=== PATIENT | female | born 1975 | race Hispanic/Latino ===

== ENCOUNTER 2018-07-07 10:56 | Emergency (ER) | payer BC ==
--- NOTE | 2018-07-07 11:34 | EDPHYS ---
Physician Documentation [facility] Name: Ruby Salvador Age: 43 yrs Sex: Female : 1975 Arrival Date: 07/07/2018 Time: 10:59 Bed 16 Private MD: Aman Munguia E ED Physician Jonny Kang HPI: 07/07 11:25 This 43 yrs old Female presents to ER via Ambulatory with complaints of blaien Numbness Of Hand, TINGLING, Shoulder Pain. 11:25 The patient or guardian reports decreased range of motion, pain. The complaints affect blaine the left hand diffusely. Context: The problem was sustained at an unknown location. Onset: The symptoms/episode began/occurred 2 week(s) ago. Modifying factors: The symptoms are alleviated by holding still, splinting, the symptoms are aggravated by movement, dependent position. Severity of symptoms: At their worst the symptoms were mild, in the emergency department the symptoms are actually worse. The patient has experienced similar episodes in the past, several times. Historical: - Allergies: 11:06 No Known Allergies; sv - Home Meds: 11:06 None [Active]; sv - PMHx: 11:06 None; sv - PSHx: 11:06 right knee; sv - Immunization history:: Flu vaccine is not up to date. - Social history:: Smoking status: Patient/guardian denies using tobacco. - Ebola Screening: : No symptoms or risks identified at this time. - Family history:: not pertinent. ROS: 11:25 Constitutional: Negative for fever, chills, and weight loss, Eyes: Negative for injury, blaine pain, redness, and discharge, ENT: Negative for injury, pain, and discharge, Neck: Negative for injury, pain, and swelling, Cardiovascular: Negative for chest pain, palpitations, and edema, Respiratory: Negative for shortness of breath, cough, wheezing, and pleuritic chest pain, Abdomen/GI: Negative for abdominal pain, nausea, vomiting, diarrhea, and constipation, Back: Negative for injury and pain, : Negative for injury, bleeding, discharge, and swelling, Skin: Negative for injury, rash, and discoloration, Neuro: Negative for headache, weakness, numbness, tingling, and seizure, Psych: Negative for depression, anxiety, suicide ideation, homicidal ideation, and hallucinations, Allergy/Immunology: Negative for hives, rash, and allergies, Endocrine: Negative for neck swelling, polydipsia, polyuria, polyphagia, and marked weight changes, Hematologic/Lymphatic: Negative for swollen nodes, abnormal bleeding, and unusual bruising. 11:25 MS/extremity: Positive for pain, tingling, of the left hand. Exam: 11:25 Constitutional: This is a well developed, well nourished patient who is awake, alert, blaine and in no acute distress. Head/Face: Normocephalic, atraumatic. Eyes: Pupils equal round and reactive to light, extra-ocular motions intact. Lids and lashes normal. Conjunctiva and sclera are non-icteric and not injected. Cornea within normal limits. Periorbital areas with no swelling, redness, or edema. ENT: Nares patent. No nasal discharge, no septal abnormalities noted. Tympanic membranes are normal and external auditory canals are clear. Oropharynx with no redness, swelling, or masses, exudates, or evidence of obstruction, uvula midline. Mucous membranes moist. Neck: Trachea midline, no thyromegaly or masses palpated, and no cervical lymphadenopathy. Supple, full range of motion without nuchal rigidity, or vertebral point tenderness. No Meningismus. Chest/axilla: Normal chest wall appearance and motion. Nontender with no deformity. No lesions are appreciated. Cardiovascular: Regular rate and rhythm with a normal S1 and S2. No gallops, murmurs, or rubs. Normal PMI, no JVD. No pulse deficits. Respiratory: Lungs have equal breath sounds bilaterally, clear to auscultation and percussion. No rales, rhonchi or wheezes noted. No increased work of breathing, no retractions or nasal flaring. Abdomen/GI: Soft, non-tender, with normal bowel sounds. No distension or tympany. No guarding or rebound. No evidence of tenderness throughout. Back: No spinal tenderness. No costovertebral tenderness. Full range of motion. Skin: Warm, dry with normal turgor. Normal color with no rashes, no lesions, and no evidence of cellulitis. Neuro: Awake and alert, GCS 15, oriented to person, place, time, and situation. Cranial nerves II-XII grossly intact. Motor strength 5/5 in all extremities. Sensory grossly intact. Cerebellar exam normal. Normal gait. Psych: Awake, alert, with orientation to person, place and time. Behavior, mood, and affect are within normal limits. 11:25 Musculoskeletal/extremity: ROM: intact in all extremities, Circulation is intact in all extremities. Sensation intact. Compartment Syndrome exam of affected extremity: is normal. DVT Exam: No signs of deep vein thrombosis. no pain, no swelling, no tenderness, negative Homans' sign noted on exam, no appreciated bluish discoloration, no erythema, no increased warmth. Vital Signs: 11:06 BP 115 / 66; Pulse 63; Resp 18; Temp 97.2; Pulse Ox 100% ; Height 5 ft. 1 in. (154.94 sv cm); MDM: 11:12 Patient medically screened. [facility] 11:30 Data reviewed: vital signs, nurses notes, lab test result(s), EKG, radiologic studies. [facility] 07/07 11:25 Order name: Splint: cock up left hand; Complete Time: 11:55 [facility] Administered Medications: 11:50 Drug: Motrin 400 mg Route: PO; em 11:52 Follow up: Response: Medication administered at discharge. em Disposition: 07/07/18 11:34 Discharged to Home. Impression: Carpal tunnel syndrome, left upper limb - moderate, Carpal tunnel syndrome, right upper limb - mild. - Condition is Stable. - Discharge Instructions: Carpal Tunnel Syndrome, Wrist Splint, Wrist Splint, Bzel-[id number]-Npec, Carpal Tunnel Syndrome, [id number], Electromyoneurogram. - Prescriptions for Medrol (Conner) 4 mg Oral Tablets, Dose Pack - take 1 tablet by ORAL route as directed - follow package instructions; 1 packet. Motrin IB 200 mg Oral Tablet - take 2 tablet by ORAL route every 6 hours As needed as needed with food; 30 tablet. - Medication Reconciliation Form, Thank You Letter, Antibiotic Education, Prescription Opioid Use, Work release form form. - Follow up: Aman Munguia MD; When: 2 - 3 days; Reason: Recheck today's complaints, Continuance of care, Re-evaluation by your physician. - Problem is new. - Symptoms have improved. Signatures: Francisca Holly RN RN sv Anderson, Corey, MD MD cha Munoz, Edgar, GLASS UNLOADING EQUIPMENT TENDER GLASS UNLOADING EQUIPMENT TENDER em Anisa Delacruz RN RN Corrections: (The following items were deleted from the chart) 11:53 11:34 07/07/2018 11:34 Discharged to Home. Impression: Carpal tunnel syndrome, left hb upper limb - moderate; Carpal tunnel syndrome, right upper limb - mild. Condition is Stable. Forms are Medication Reconciliation Form, Thank You Letter, Antibiotic Education, Prescription Opioid Use. Follow up: Aman Munguia; When: 2 - 3 days; Reason: Recheck today's complaints, Continuance of care, Re-evaluation by your physician. Problem is new. Symptoms have improved. blaine
--- NOTE | 2018-07-07 11:34 | ER ---
Nurse's Notes [facility] Name: Ruby Salvador Age: 43 yrs Sex: Female : 1975 Arrival Date: 07/07/2018 Time: 10:59 Bed 16 Private MD: Aman Munguia E Diagnosis: Carpal tunnel syndrome, left upper limb-moderate;Carpal tunnel syndrome, right upper limb-mild Presentation: 07/07 11:04 Presenting complaint: Patient states: numbness and tingling to the left arm and hand x sv 3 days and today started having numbness to the right hand today. Denies recent fall or injury. Transition of care: patient was not received from another setting of care. Onset of symptoms was July 04, 2018. Care prior to arrival: None. 11:04 Method Of Arrival: Ambulatory sv 11:04 Acuity: TIFFANI 3 sv 11:50 Risk Assessment: Do you want to hurt yourself or someone else? Patient reports no em desire to harm self or others. Initial Sepsis Screen: Does the patient meet any 2 criteria? No. Patient's initial sepsis screen is negative. Does the patient have a suspected source of infection? No. Patient's initial sepsis screen is negative. Triage Assessment: 11:04 General: Appears in no apparent distress. uncomfortable, Behavior is calm, cooperative, sv appropriate for age. Pain: Complains of pain in left arm. Neuro: Level of Consciousness is awake, alert, obeys commands, Oriented to person, place, time, situation, Moves all extremities. Full function Gait is unsteady, Reports numbness in right hand and left arm. Respiratory: Respiratory effort is even, unlabored, Respiratory pattern is regular, symmetrical. Historical: - Allergies: 11:06 No Known Allergies; sv - Home Meds: 11:06 None [Active]; sv - PMHx: 11:06 None; sv - PSHx: 11:06 right knee; sv - Immunization history:: Flu vaccine is not up to date. - Social history:: Smoking status: Patient/guardian denies using tobacco. - Ebola Screening: : No symptoms or risks identified at this time. - Family history:: not pertinent. Screenin:50 Abuse screen: Denies threats or abuse. Nutritional screening: No deficits noted. em Tuberculosis screening: No symptoms or risk factors identified. Fall Risk None identified. Assessment: 11:50 General: Appears in no apparent distress. comfortable, Behavior is calm, cooperative. em Neuro: Level of Consciousness is awake, alert, obeys commands. Respiratory: Airway is patent Respiratory effort is even, unlabored, Respiratory pattern is regular, symmetrical. Derm: Skin is intact, is healthy with good turgor, Skin is pink, warm \T\ dry. Musculoskeletal: Range of motion: limited in left wrist. Vital Signs: 11:06 BP 115 / 66; Pulse 63; Resp 18; Temp 97.2; Pulse Ox 100% ; Height 5 ft. 1 in. (154.94 sv cm); ED Course: 10:59 Patient arrived in ED. sb2 11:00 Aman Munguia MD is Private Physician. sb2 11:05 Triage completed. sv 11:06 Arm band placed on. sv 11:12 Jonny Kang MD is Attending Physician. [facility] 11:32 Aman Munguia MD is Referral Physician. [facility] 11:41 Juan Giron LVN is Primary Nurse. em 11:50 Patient has correct armband on for positive identification. Placed in gown. Call light em in reach. 11:52 No provider procedures requiring assistance completed. Patient did not have IV access em during this emergency room visit. Administered Medications: 11:50 Drug: Motrin 400 mg Route: PO; em 11:52 Follow up: Response: Medication administered at discharge. em Outcome: 11:34 Discharge ordered by . [facility] 11:52 Discharged to home ambulatory. em 11:52 Condition: good 11:52 Discharge instructions given to patient, Instructed on discharge instructions, follow up and referral plans. medication usage, Demonstrated understanding of instructions, follow-up care, medications, Prescriptions given X 2. 11:53 Patient left the ED. Signatures: Francisca Holly, RN RN Jonny Kang MD MD cha Munoz, Edgar, LVN ART INSTRUCTOR em Anisa Delacruz, BELKIS RN Neisha Youssef sb2 Corrections: (The following items were deleted from the chart) 19:16 12:52 No provider procedures requiring assistance completed. em em 19:16 12:52 Patient did not have IV access during this emergency room visit. em em
[2018-07-07 11:57] VITALS: BP 115/66; TEMP 97.2; O2SAT 100
[2018-07-07] MEDS ORDERED: IBUPROFEN 400 MG TAB ONE (11:58)
== END 2018-07-07 11:53 | disposition home or self-care (01) ==
LOC: ER 10:56
DX: G56.03 Carpal tunnel syndrome, bilateral upper limbs (principal)
CPT/HCPCS: 99283

== ENCOUNTER 2019-12-04 11:11 | Emergency (ER) | payer BC, SELFPAY ==
[2019-12-04] MEDS ORDERED: MORPHINE 4 MG/ML SYR ONE (13:14)
[2019-12-04] MEDS ORDERED: ONDANSETRON 4 MG/2 ML VIAL ONE (13:15)
[2019-12-04 13:42] LABS: Absolute Lymphocytes (CBC) 1.9 K/uL (0.7-4.9); Basophils % 0.5 % (0-1.3); Hematocrit 37.6 % (36.0-45.0); Lymphocytes % 25.8 % (15.3-44.8); MPV 9.1 fL (7.6-11.3); RBC Red Blood Cell Count 4.36 M/uL (3.86-4.86)
[2019-12-04 13:57] LABS: ALT/SGPT 25 U/L (12-78); AST/SGOT 11 U/L (15-37); Albumin 3.5 g/dL (3.4-5.0); Alkaline Phosphatase 76 U/L (45-117); BUN Blood Urea Nitrogen 8 mg/dL (7-18); Bicarbonate 25 mmol/L (21-32); Bilirubin Direct 0.1 mg/dL (0-0.2); Bilirubin Total 0.3 mg/dL (0.2-1.0); Glucose Level 95 mg/dL (74-106); Lipase 79 U/L (73-393); Potassium 3.8 mmol/L (3.5-5.1); Protein, Total 7.6 g/dL (6.4-8.2); Sodium Level 139 mmol/L (136-145)
--- NOTE | 2019-12-04 13:59 | RAD REPORT ---
EXAM DESCRIPTION: CT - Abdomen Pelvis W Contrast - 12/04/2019 1:31 pm CLINICAL HISTORY: FLANK PAIN COMPARISON: CTSTONE PROTOCOL dated 08/04/2012 TECHNIQUE: Biphasic, helical CT imaging of the abdomen and pelvis was performed following 100 ml non -ionic IV contrast. No oral contrast given. All CT scans are performed using dose optimization technique as appropriate and may include automated exposure control or mA/KV adjustment according to patient size. FINDINGS: No suspicious findings in the lung bases. Liver shows a very pronounced fatty infiltration pattern. No focal liver lesions identified. Fatty in filtration was evident on the comparison. No spleen or pancreatic abnormality. No biliary tree abnorm ality. A 2.4 centimeter gallstone is present within the lumen of a normal-sized gallbladder. No wall thickening or pericholecystic fluid evident. Symmetric renal function is seen with no hydronephrosis or suspicious renal mass. No pyelonephritis o r acute parenchymal process. No bladder abnormalities. No adrenal abnormalities. Uterus and ovaries show no suspicious findings. No dilated bowel loops or bowel wall thickening. The appendix is normal. No free air, free fluid or i nflammatory stranding. No mass or bulky lymphadenopathy. A very small fat only umbilical hernia pres ent. No suspicious bony findings. IMPRESSION: A 2.4 centimeter gallstone is present without active gallbladder disease identifiable. Diffuse fatty infiltration of the liver similar to comparison. No acute GI, or CAREER GUIDANCE COUNSELOR process otherwise noted.
--- NOTE | 2019-12-04 15:25 | ER ---
Nurse's Notes [facility] Name: Ruby Salvador Age: 44 yrs Sex: Female : 1975 Arrival Date: 12/04/2019 Time: :12 Bed 16 Private MD: Diagnosis: Flank Pain;Cholelithiasis Presentation: 12/03 11:29 Chief complaint: Patient states: Flank pain on both sides since 3 weeks, worse in the ca1 past few days. Denies urinary symptoms. Denies kidneys. History of frequent UTIs without burning with urination. Denies fever and nausea. Coronavirus screen: Proceed with normal triage. Patient denies a cough. Patient denies shortness of breath or difficulty breathing. Patient denies measured and/or subjective temperature greater than 100.4F prior to today's visit. Patient denies travel on a cruise ship or to a country the [facility] currently lists as an affected area. Patient denies contact with known and/or suspected case of COVID-19. Ebola Screen: Patient negative for fever greater than or equal to 101.5 degrees Fahrenheit, and additional compatible Ebola Virus Disease symptoms Patient denies exposure to infectious person. Patient denies travel to an Ebola-affected area in the 21 days before illness onset. No symptoms or risks identified at this time. Initial Sepsis Screen: Does the patient meet any 2 criteria? No. Patient's initial sepsis screen is negative. Does the patient have a suspected source of infection? No. Patient's initial sepsis screen is negative. Risk Assessment: Do you want to hurt yourself or someone else? Patient reports no desire to harm self or others. Onset of symptoms was December 04, 2019. 11:29 Method Of Arrival: Wheelchair ca1 11:29 Acuity: TIFFANI 3 ca1 Triage Assessment: 12:19 General: Appears in no apparent distress. comfortable, Behavior is cooperative, bp appropriate for age, anxious. Pain: Complains of pain in back. EENT: No deficits noted. Neuro: No deficits noted. Cardiovascular: No deficits noted. Respiratory: No deficits noted. GI: No signs and/or symptoms were reported involving the gastrointestinal system. : No signs and/or symptoms were reported regarding the genitourinary system. Derm: No deficits noted. Musculoskeletal: Circulation, motion, and sensation intact. Range of motion: intact in all extremities. 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 - Social history:: Smoking status: Patient denies any tobacco usage or history of. Screenin:20 Abuse screen: Denies threats or abuse. Denies injuries from another. Nutritional bp screening: No deficits noted. Tuberculosis screening: No symptoms or risk factors identified. Fall Risk None identified. Assessment: 12:20 General: SEE TRIAGE NOTE. Neuro: Level of Consciousness is awake, alert, obeys bp commands, Oriented to Appropriate for age. 14:30 Reassessment: PT AMBULATORY TO RESTROOM. VS STABLE. bp 15:33 Reassessment: PT D/C HOME AMBULATORY, DX WITH CHOLELITHIASIS. bp Vital Signs: 11:29 BP 121 / 76; Pulse 64; Resp 16 S; Temp 98.8(O); Pulse Ox 100% on R/A; Weight 92.08 kg ca1 (R); Height 5 ft. 1 in. (154.94 cm) (R); Pain 8/10; 12:30 BP 117 / 62; Pulse 71; Resp 16; Pulse Ox 99% ; bp 14:30 BP 102 / 58; Pulse 61; Resp 16; Pulse Ox 100% ; bp 15:33 BP 106 / 66; Pulse 59; Resp 17; Temp 98.5; Pulse Ox 100% ; bp 11:29 Body Mass Index 38.36 (92.08 kg, 154.94 cm) ca1 ED Course: 11:12 Patient arrived in ED. ag5 11:32 Triage completed. ca1 11:36 Arm band placed on right wrist. EKG completed in triage. Results shown to MD. ca1 12:19 William Merida, RN is Primary Nurse. bp 12:20 Patient has correct armband on for positive identification. Bed in low position. Call bp light in reach. Side rails up X2. 12:22 Jonny Kang MD is Attending Physician. [facility] 12:22 Je Torres PA is PHCP. m 13:00 Inserted saline lock: 20 gauge in left forearm, using aseptic technique. Blood bp collected. 13:31 CT Abd/Pelvis - IV Contrast Only In Process Unspecified. EDMS 15:33 No provider procedures requiring assistance completed. IV discontinued, intact, bp bleeding controlled, No redness/swelling at site. Pressure dressing applied. Administered Medications: 13:05 Drug: morphine 4 mg Route: IVP; Site: left forearm; bp 15:35 Follow up: Response: Pain is decreased bp 13:05 Drug: Zofran (Ondansetron) 4 mg Route: IVP; Site: left forearm; bp 15:35 Follow up: Response: No adverse reaction bp Outcome: 15:25 Discharge ordered by . carolynn 15:34 Discharged to home ambulatory. bp 15:34 Condition: stable 15:34 Discharge instructions given to patient, Instructed on discharge instructions, follow up and referral plans. medication usage, Demonstrated understanding of instructions, follow-up care, medications, Prescriptions given X 1. 15:35 Patient left the ED. bp Signatures: Dispatcher [employer] EDMS Jonny Kang MD MD cha Mickail, Joel, PA PA William Fraga, BELKIS RN bp Angelique Chang RN RN [facility] Esteban [place] ag5 Corrections: (The following items were deleted from the chart) 14:44 14:37 Reassessment: bp bp
--- NOTE | 2019-12-04 15:26 | EDPHYS ---
Physician Documentation [facility] Name: Ruby Salvador Age: 44 yrs Sex: Female : 1975 Arrival Date: 12/04/2019 Time: 11:12 Bed 16 Private MD: ED Physician Jonny Kang HPI: 12/03 12:22 This 44 yrs old Female presents to ER via Wheelchair with complaints of Back jmm Pain. 12:22 The patient presents with pain that is chronic, with no known mechanism of injury. The jmm symptoms are located in the left flank, right flank, left mid back and right mid back. Onset: The symptoms/episode began/occurred gradually, 3 week(s) ago. The pain does not radiate. Associated signs and symptoms: Pertinent negatives: constipation, fever, vomiting, weakness. This is a 44 year old female with no known chronic medical conditions that presents to the ED with complaints of bilateral flank pain, ongoing for the past 3 weeks. Patient stats having intermittent episodes of similar pain. . 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 - Social history:: Smoking status: Patient denies any tobacco usage or history of. ROS: 12:22 Constitutional: Negative for fever, chills, and weight loss, Cardiovascular: Negative jmm for chest pain, palpitations, and edema, Respiratory: Negative for shortness of breath, cough, wheezing, and pleuritic chest pain. 12:22 Back: Positive for pain with movement. 12:22 All other systems are negative. Exam: 12:22 Constitutional: This is a well developed, well nourished patient who is awake, alert, jmm and in no acute distress. Head/Face: atraumatic. Eyes: EOMI, no conjunctival erythema appreciated ENT: Moist Mucus Membranes Neck: Trachea midline, Supple Chest/axilla: Normal chest wall appearance and motion. Cardiovascular: Regular rate and rhythm. No edema appreciated Respiratory: Normal respirations, no respiratory distress appreciated 12:22 Skin: General appearance color normal MS/ Extremity: Moves all extremities, no obvious deformities appreciated, no edema noted to the lower extremities Neuro: Awake and alert, normal gait Psych: Behavior is normal, Mood is normal, Patient is cooperative and pleasant 12:22 Abdomen/GI: Inspection: abdomen appears normal, Bowel sounds: normal, Palpation: abdomen is soft and non-tender, in all quadrants. 12:22 Back: CVA tenderness, is noted bilaterally. Vital Signs: 11:29 BP 121 / 76; Pulse 64; Resp 16 S; Temp 98.8(O); Pulse Ox 100% on R/A; Weight 92.08 kg ca1 (R); Height 5 ft. 1 in. (154.94 cm) (R); Pain 8/10; 12:30 BP 117 / 62; Pulse 71; Resp 16; Pulse Ox 99% ; bp 14:30 BP 102 / 58; Pulse 61; Resp 16; Pulse Ox 100% ; bp 15:33 BP 106 / 66; Pulse 59; Resp 17; Temp 98.5; Pulse Ox 100% ; bp 11:29 Body Mass Index 38.36 (92.08 kg, 154.94 cm) ca1 MDM: 12:22 Patient medically screened. [facility] 15:22 Data reviewed: vital signs, nurses notes, lab test result(s), radiologic studies, CT [facility] scan. 15:22 Counseling: I had a detailed discussion with the patient and/or guardian regarding: the [facility] historical points, exam findings, and any diagnostic results supporting the discharge/admit diagnosis, lab results, radiology results, the need for outpatient follow up, to return to the emergency department if symptoms worsen or persist or if there are any questions or concerns that arise at home. ED course: Patient is alert and non toxic in appearance in the ED. Pain is relieved. Patient is advised to follow up with GI for further evaluation of cholelithiasis. UA negative. CT otherwise negative. Patient is otherwise given strict return precautions. Patient understood and agrees with the plan of care. . 12/03 12:57 Order name: Basic Metabolic Panel; Complete Time: 14:05 [facility] 12/03 12:57 Order name: CBC with Diff; Complete Time: 13:53 [facility] 12/03 12:57 Order name: Hepatic Function; Complete Time: 14:05 [facility] 12/03 12:57 Order name: Lipase; Complete Time: 14:05 [facility] 12/03 13:38 Order name: CREATININE WHOLE BLOOD; Complete Time: 13:53 [facility] 12/03 11:37 Order name: EKG; Complete Time: 11:38 ca1 12/03 11:37 Order name: EKG - Nurse/Tech; Complete Time: 11:37 ca1 12/03 12:57 Order name: IV Saline Lock; Complete Time: 13:35 [facility] 12/03 12:58 Order name: CT Abd/Pelvis - IV Contrast Only; Complete Time: 14:05 [facility] 12/03 15:14 Order name: Urine Dipstick--Ancillary (enter results) 12/03 15:14 Order name: Urine --Ancillary (enter results) 12/03 12:57 Order name: Labs collected and sent; Complete Time: 13:34 [facility] 12/03 12:57 Order name: Urine Dipstick-Ancillary (obtain specimen); Complete Time: 13:35 [facility] Administered Medications: 13:05 Drug: morphine 4 mg Route: IVP; Site: left forearm; bp 15:35 Follow up: Response: Pain is decreased bp 13:05 Drug: Zofran (Ondansetron) 4 mg Route: IVP; Site: left forearm; bp 15:35 Follow up: Response: No adverse reaction bp Disposition: 12/04 09:38 Co-signature as Attending Physician, Jonny Kang MD I agree with the assessment and [facility] plan of care. Disposition: 12/04/19 15:25 Discharged to Home. Impression: Flank Pain, Cholelithiasis. - Condition is Stable. - Discharge Instructions: Flank Pain, Adult, Cholelithiasis. - Prescriptions for orphenadrine citrate 100 mg Oral Tablet Sustained Release - take 1 tablet by ORAL route 2 times per day As needed; 20 tablet. - Medication Reconciliation Form, Thank You Letter, Antibiotic Education, Prescription Opioid Use form. - Follow up: Private Physician; When: 2 - 3 days; Reason: Recheck today's complaints, Continuance of care, Re-evaluation by your physician. Signatures: Dispatcher [employer] Jonny Schuster MD MD cha Mickail, Joel, PA PA jmm Peltier, Brian, RN RN bp Angelique Chang RN RN ca1 Corrections: (The following items were deleted from the chart) 12/03 12:58 12:58 Creatinine for Radiology+C.LAB.BRZ ordered. EDNV EDMS 15:35 15:25 12/04/2019 15:25 Discharged to Home. Impression: Flank Pain; Cholelithiasis. bp Condition is Stable. Forms are Medication Reconciliation Form, Thank You Letter, Antibiotic Education, Prescription Opioid Use. Follow up: Private Physician; When: 2 - 3 days; Reason: Recheck today's complaints, Continuance of care, Re-evaluation by your physician. carolynn
[2019-12-04 16:32] VITALS: O2SAT 100
[2019-12-04 16:33] VITALS: BP 106/66; TEMP 98.5
[2019-12-04 17:23] LABS: Urine Blood NEGATIVE (NEG); Urine Glucose NEGATIVE (NEG); Urine Protein NEGATIVE (NEG)
--- NOTE | 2019-12-05 07:24 | EKG ---
Test Date: 2019-12-04 Test Time: 11:38:31 Diamond Grinder: STACIE MEASUREMENT RESULTS: Intervals: Rate: 61 IA: 128 QRSD: 80 QT: 412 QTc: 414 [place]: P: 44 IA: 128 QRS: 86 T: 55 INTERPRETIVE STATEMENTS: Normal sinus rhythm Normal ECG Compared to ECG 06/16/2010 13:38:10 No significant changes Electronically Signed On 12-05-19 07:23:03 CDT by Brian Gallardo
== END 2019-12-04 15:35 | disposition home or self-care (01) ==
LOC: ER 11:11
DX: K80.20 Calculus of gallbladder without cholecystitis without obstruction (principal)
CPT/HCPCS: 36415; 74177; 80048; 80076; 81003; 81025; 82565; 83690; 85025; 93005; 96374; 96375; 99284; J2405; Q9967

== ENCOUNTER 2022-05-14 06:43 | Observation (INO) | payer SELFPAY ==
[2022-05-14 07:34] LABS: Hematocrit 37.5 % (36.0-45.0); Lymphocytes % 29.1 % (15.3-44.8); MCV 83.9 fL (80-100); MPV 8.5 fL (7.6-11.3); RBC Red Blood Cell Count 4.47 M/uL (3.86-4.86)
[2022-05-14] MEDS ORDERED: ONDANSETRON 4 MG/2 ML VIAL ONE (07:52)
[2022-05-14] MEDS ORDERED: MORPHINE 4 MG/ML SYR ONE (07:52)
[2022-05-14] MEDS ORDERED: PIPERACIL/TAZO 3.375 GM VIAL IV ONE (07:53)
[2022-05-14] MEDS ORDERED: NA CHLORIDE 0.9% 1,000 ML ONE (07:53)
[2022-05-14] MEDS ORDERED: NA CHLORIDE 0.9% 100 ML IV ONE (07:53)
[2022-05-14] MEDS ORDERED: FAMOTIDINE 20 MG/2 ML VIAL IV ONE (07:53)
[2022-05-14 07:54] LABS: Potassium 3.6 mmol/L (3.5-5.1); Troponin High Sensitivity 4.8 pg/mL (<58.9)
--- NOTE | 2022-05-14 08:31 | RAD REPORT ---
EXAM DESCRIPTION: US - Abdomen Exam Limited - 05/14/2022 8:04 am CLINICAL HISTORY: ABD PAIN COMPARISON: No comparisons FINDINGS: The gallbladder demonstrates shadowing gallstone. No pericholecystic fluid or gallbladder wall thickening. The common bile duct is upper limit of normal measuring 4-5 mm. The liver demonstrates no findings of intrahepatic biliary dilatation. IMPRESSION: Cholelithiasis.
[2022-05-14 08:47] LABS: SARS-CoV-2 Antigen Rapid Res Negative (Negative)
--- NOTE | 2022-05-14 08:50 | RAD REPORT ---
EXAM DESCRIPTION: RAD - Chest Single View - 05/14/2022 8:29 am CLINICAL HISTORY: CHEST PAIN Chest pain. COMPARISON: CHEST SINGLE VIEW dated 06/16/2010 FINDINGS: Portable technique limits examination quality. The lungs are grossly clear. The heart is normal in size. No displaced fractures. IMPRESSION: No acute intrathoracic process suspected.
--- NOTE | 2022-05-14 09:28 | ER ---
Nurse's Notes [facility] Name: Ruby Salvador Age: 46 yrs Sex: Female : 1975 Arrival Date: 05/14/2022 Time: 06:46 Bed 5 Private MD: Diagnosis: Calculus of gallbladder and bile duct with acute and chronic cholecystitis without obstruction;Abdominal pain, Generalized Presentation: 05/14 06:53 Chief complaint: Patient states: I woke up this morning about 3 am with chest pain it vc1 started in my upper stomach but now is over my heart and left shoulder. 06:53 Coronavirus screen: Vaccine status: Patient reports being unvaccinated. At this time, vc1 the client does not indicate any symptoms associated with coronavirus-19. Ebola Screen: No symptoms or risks identified at this time. Risk Assessment: Do you want to hurt yourself or someone else? Patient reports no desire to harm self or others. Onset of symptoms was May 14, 2022 at 03:00. 06:53 Method Of Arrival: Ambulatory vc1 06:53 Acuity: TIFFANI 3 vc1 07:10 Initial Sepsis Screen: Does the patient meet any 2 criteria? No. Patient's initial ha1 sepsis screen is negative. Does the patient have a suspected source of infection? No. Patient's initial sepsis screen is negative. Triage Assessment: 06:55 General: Appears in no apparent distress. uncomfortable, Behavior is anxious. Pain: vc1 Complains of pain in xiphoid area Pain radiates to anterior aspect of left upper chest and left arm Pain currently is 8 out of 10 on a pain scale. Neuro: Level of Consciousness is awake, alert, obeys commands, Oriented to person, place, time, situation, Appropriate for age. Cardiovascular: Patient's skin is warm and dry. Chest pain is described as severe, quality is clutching, sharp, is located in left anterior chest wall radiates to left arm(s). Respiratory: Airway is patent Respiratory effort is even, unlabored, Respiratory pattern is regular, symmetrical. GI: No deficits noted. : No deficits noted. Derm: No deficits noted. Musculoskeletal: No deficits noted. 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 - Social history:: Smoking status: Patient denies any tobacco usage or history of. - Family history:: not pertinent. Screenin:54 Abuse screen: Denies threats or abuse. Nutritional screening: No deficits noted. vc1 Tuberculosis screening: No symptoms or risk factors identified. Fall Risk None identified. Assessment: 07:05 General: Appears uncomfortable, Behavior is cooperative. Pain: Complains of pain in mid ha1 epigastric and chest Pain radiates to right shoulder Pain currently is 10 out of 10 on a pain scale. Quality of pain is described as burning, Pain began 3 hours ago. Is continuous. Neuro: Level of Consciousness is awake, alert, obeys commands, Oriented to person, place, time, situation, Speech is normal. Cardiovascular: Heart tones S1 S2 present Capillary refill < 3 seconds Patient's skin is warm and dry. Rhythm is sinus rhythm. Respiratory: Airway is patent Trachea midline Respiratory effort is even, unlabored, Respiratory pattern is regular, symmetrical. GI: Abdomen is non-distended, obese, Bowel sounds present X 4 quads. Reports epigastric pain. : No signs and/or symptoms were reported regarding the genitourinary system. Derm: Skin is pink, warm \T\ dry. Musculoskeletal: Circulation, motion, and sensation intact. Range of motion: intact in all extremities. 07:10 General: Appears in no apparent distress. uncomfortable, Behavior is cooperative, tp1 anxious. Pain: Complains of pain in epigastric area Pain radiates to back and chest Pain currently is 7 out of 10 on a pain scale. Quality of pain is described as burning, sharp, Pain began 3 AM Is continuous. Neuro: Level of Consciousness is awake, alert, obeys commands, Oriented to person, place, time, situation, Denies blurred vision headache. Cardiovascular: Patient's skin is warm and dry. Rhythm is sinus bradycardia. Respiratory: Reports shortness of breath Airway is patent Respiratory effort is even, unlabored. GI: Abdomen is round non-distended, Abd is soft and non tender X 4 quads. Reports diarrhea, flatulence. : No signs and/or symptoms were reported regarding the genitourinary system. EENT: No signs and/or symptoms were reported regarding the EENT system. Derm: Skin is pink, warm \T\ dry. Musculoskeletal: Circulation, motion, and sensation intact. 08:00 Reassessment: escorted to ultrasound via wheelchair by [employer]. tp1 08:10 Reassessment: returned from ultrasound. tp1 08:26 Reassessment: Patient appears in no apparent distress at this time. Patient and/or tp1 family updated on plan of care and expected duration. Pain level reassessed. Patient is alert, oriented x 3, equal unlabored respirations, skin warm/dry/pink. Patient denies pain at this time. 09:22 Reassessment: Patient appears in no apparent distress at this time. No changes from tp1 previously documented assessment. Patient is alert, oriented x 3, equal unlabored respirations, skin warm/dry/pink. Patient denies pain at this time. 10:40 Reassessment: escorted to CT via stretcher by [employer]. tp1 10:43 Reassessment: Attempted to give report, will call back. tp1 Vital Signs: 06:53 Weight 89.81 kg; Height 5 ft. 1 in. (154.94 cm); Pain 8/10; vc1 07:01 BP 138 / 83; Pulse 56; Resp 19 S; Pulse Ox 95% on R/A; Height 5 ft. 4 in. (162.56 cm); ha1 Pain 10/10; 08:30 BP 119 / 68; Pulse 60; Resp 13; Pulse Ox 100% on R/A; tp1 09:22 BP 115 / 75; Pulse 55; Resp 16; Pulse Ox 100% on R/A; tp1 10:30 BP 112 / 56; Pulse 55; Resp 12; Pulse Ox 100% on R/A; tp1 07:01 Body Mass Index 33.99 (89.81 kg, 162.56 cm) ha1 ED Course: 06:46 Patient arrived in ED. bp1 06:54 Triage completed. vc1 06:56 Arm band placed on right wrist. vc1 06:57 Placed in gown. Bed in low position. Call light in reach. vc1 07:01 La Nena Ballard RN is Primary Nurse. ha1 07:10 Report given to BELKIS sanders. ha1 07:11 Client placed on continuous cardiac and pulse oximetry monitoring. NIBP monitoring ha1 applied. 07:16 Jonny Kang MD is Attending Physician. blaine 07:18 Inserted saline lock: 20 gauge in right antecubital area, using aseptic technique. tp1 Blood collected. Patient maintains SpO2 saturation greater than 95% on room air. 07:18 EKG done. tp1 08:06 US Abdomen Limited In Process Unspecified. EDMS 08:31 XRAY Chest (1 view) In Process Unspecified. EDMS 09:25 Kai Truong MD is Hospitalizing Provider. blaine 10:28 Serena Prakash MD is Hospitalizing Provider. blaine 10:40 No provider procedures requiring assistance completed. tp1 12:28 Patient admitted, IV remains in place. tp1 Administered Medications: 08:10 Drug: Zofran (Ondansetron) 4 mg Route: IVP; Site: right antecubital; tp1 09:23 Follow up: Response: No adverse reaction tp1 08:13 Drug: morphine 4 mg Route: IVP; Infused Over: 4 mins; Site: right antecubital; tp1 08:40 Follow up: Response: Pain is decreased tp1 08:16 Drug: Pepcid (famotidine) 20 mg Route: IVP; Site: right antecubital; tp1 08:40 Follow up: Response: Pain is decreased tp1 08:19 Drug: NS 0.9% 1000 ml Route: IV; Rate: 125 ml/hr; Site: right antecubital; tp1 12:27 Follow up: IV Status: Infusion continued upon admission tp1 09:03 Drug: Zosyn (piperacillin-tazobactam) 3.375 grams Route: IVPB; Infused Over: 60 mins; tp1 Site: right antecubital; 10:38 Follow up: Response: No adverse reaction; IV Status: Completed infusion; IV Intake: tp1 100ml Medication: 10:40 VIS not applicable for this client. tp1 Intake: 10:38 IV: 100ml; Total: 100ml. tp1 Outcome: 09:27 Decision to Hospitalize by Provider. blaine 12:28 Admitted to Med/surg accompanied by nurse, via wheelchair. tp1 12:28 Condition: good 12:28 Discharge instructions given to patient, Instructed on discharge instructions, Demonstrated understanding of instructions. 12:28 Patient left the ED. tp1 Signatures: Dispatcher [employer] EDJonny Pak MD MD cha Paniauga, Brittany bp1 Parker, Tiffany, RN RN tp1 Kristin Hawk RN RN vc1 La Nena Ballard RN RN ha1 Corrections: (The following items were deleted from the chart) 07:26 07:10 GI: Abdomen is round non-distended, Reports diarrhea, flatulence, tp1 tp1
--- NOTE | 2022-05-14 09:28 | EDPHYS ---
Physician Documentation [facility] Name: Ruby Salvador Age: 46 yrs Sex: Female : 1975 Arrival Date: 05/14/2022 Time: 06:46 Bed 5 Private MD: Jonny Kelly HPI: 05/14 09:18 This 46 yrs old Female presents to ER via Ambulatory with complaints of Chest blaine Pain, Shoulder Pain. 09:18 The patient or guardian reports chest pain that is located primarily in the epigastric blaine area. 09:19 Onset: 2 day(s) ago. The patient presents with abdominal pain in the epigastric area, blaine in the upper abdomen. Onset: The symptoms/episode began/occurred 2 day(s) ago. The pain radiates to the left shoulder, the left scapula. The symptoms radiate to the left shoulder. Associated signs and symptoms: Pertinent positives: nausea and vomiting. Modifying factors: The symptoms are alleviated by nothing, the symptoms are aggravated by food. Associated signs and symptoms: Pertinent positives: abdominal pain. 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 - Social history:: Smoking status: Patient denies any tobacco usage or history of. - Family history:: not pertinent. ROS: 09:19 Constitutional: Negative for fever, chills, and weight loss, Eyes: Negative for injury, blaine pain, redness, and discharge, ENT: Negative for injury, pain, and discharge, Neck: Negative for injury, pain, and swelling, Cardiovascular: Negative for chest pain, palpitations, and edema, Respiratory: Negative for shortness of breath, cough, wheezing, and pleuritic chest pain, Back: Negative for injury and pain, : Negative for injury, bleeding, discharge, and swelling, MS/Extremity: Negative for injury and deformity, Skin: Negative for injury, rash, and discoloration, Neuro: Negative for headache, weakness, numbness, tingling, and seizure, Psych: Negative for depression, anxiety, suicide ideation, homicidal ideation, and hallucinations, Allergy/Immunology: Negative for hives, rash, and allergies, Endocrine: Negative for neck swelling, polydipsia, polyuria, polyphagia, and marked weight changes, Hematologic/Lymphatic: Negative for swollen nodes, abnormal bleeding, and unusual bruising. 09:19 Abdomen/GI: Positive for abdominal pain, nausea and vomiting, of the epigastric area and right upper quadrant. Exam: 09:19 Constitutional: This is a well developed, well nourished patient who is awake, alert, blaine and in no acute distress. Head/Face: Normocephalic, atraumatic. Eyes: Pupils equal round and reactive to light, extra-ocular motions intact. Lids and lashes normal. Conjunctiva and sclera are non-icteric and not injected. Cornea within normal limits. Periorbital areas with no swelling, redness, or edema. ENT: Nares patent. No nasal discharge, no septal abnormalities noted. Tympanic membranes are normal and external auditory canals are clear. Oropharynx with no redness, swelling, or masses, exudates, or evidence of obstruction, uvula midline. Mucous membranes moist. Neck: Trachea midline, no thyromegaly or masses palpated, and no cervical lymphadenopathy. Supple, full range of motion without nuchal rigidity, or vertebral point tenderness. No Meningismus. Chest/axilla: Normal chest wall appearance and motion. Nontender with no deformity. No lesions are appreciated. Cardiovascular: Regular rate and rhythm with a normal S1 and S2. No gallops, murmurs, or rubs. Normal PMI, no JVD. No pulse deficits. Respiratory: Lungs have equal breath sounds bilaterally, clear to auscultation and percussion. No rales, rhonchi or wheezes noted. No increased work of breathing, no retractions or nasal flaring. Back: No spinal tenderness. No costovertebral tenderness. Full range of motion. Skin: Warm, dry with normal turgor. Normal color with no rashes, no lesions, and no evidence of cellulitis. MS/ Extremity: Pulses equal, no cyanosis. Neurovascular intact. Full, normal range of motion. Neuro: Awake and alert, GCS 15, oriented to person, place, time, and situation. Cranial nerves II-XII grossly intact. Motor strength 5/5 in all extremities. Sensory grossly intact. Cerebellar exam normal. Normal gait. Psych: Awake, alert, with orientation to person, place and time. Behavior, mood, and affect are within normal limits. 09:19 ECG was reviewed by the Attending Physician. 09:19 Abdomen/GI: Inspection: abdomen appears normal, Bowel sounds: normal, active, all quadrants, Palpation: mild abdominal tenderness, in the right upper quadrant, Liver: no appreciated palpable abnormalities, Hernia: not appreciated. Vital Signs: 06:53 Weight 89.81 kg; Height 5 ft. 1 in. (154.94 cm); Pain 8/10; vc1 07:01 BP 138 / 83; Pulse 56; Resp 19 S; Pulse Ox 95% on R/A; Height 5 ft. 4 in. (162.56 cm); ha1 Pain 10/10; 08:30 BP 119 / 68; Pulse 60; Resp 13; Pulse Ox 100% on R/A; tp1 09:22 BP 115 / 75; Pulse 55; Resp 16; Pulse Ox 100% on R/A; tp1 10:30 BP 112 / 56; Pulse 55; Resp 12; Pulse Ox 100% on R/A; tp1 07:01 Body Mass Index 33.99 (89.81 kg, 162.56 cm) ha1 MDM: 07:17 Patient medically screened. [facility] 09:22 Differential diagnosis: abnormal EKG, chest wall pain, Cholelithiasis esophagitis, blaine hiatal hernia, pancreatitis, peptic ulcer disease, pneumonia, unstable angina, bowel obstruction, cholecystitis, Cholelithiasis, non-specific abd pain, pancreatitis, Peptic Ulcer Disease, urinary tract infection. HEART Score: History: Slightly Suspicious (0), ECG: Normal (0), Age: > 45 and < 65 years (1), Risk Factors: No Risk Factors Known (0), Troponin: < or = 1 x Normal Limit (0). The patient was not given aspirin in the Emergency Department. Not indicated due to patient's past medical history. The patient's deep vein thrombosis risk score was calculated as follows: Total Score: 0. This patient was found to be at low risk for a deep vein thrombosis by using the Well's assessment criteria. The patient's pulmonary embolism risk score was calculated as follows: Total Score: 0-2 points. This patient was found to be at low risk for a pulmonary embolism by using the Well's assessment criteria. SUZI Risk Score: not applicable. Data reviewed: vital signs, nurses notes. Data interpreted: monitor car operator: rate is 60 beats/min, rhythm is regular, Pulse oximetry: on room air is 55 %. Test interpretation: by ED physician or midlevel provider: ECG, plain radiologic studies. Counseling: I had a detailed discussion with the patient and/or guardian regarding: the historical points, exam findings, and any diagnostic results supporting the discharge/admit diagnosis, lab results, radiology results, the need for further work-up and treatment in the hospital. 05/14 06:58 Order name: Basic Metabolic Panel; Complete Time: 09:15 1 05/14 06:58 Order name: CBC with Diff; Complete Time: 09:15 1 05/14 06:58 Order name: Troponin HS; Complete Time: 09:15 vc1 05/14 06:58 Order name: XRAY Chest (1 view); Complete Time: 09:15 [facility] 05/14 07:41 Order name: Lipase; Complete Time: 09:15 [facility] 05/14 07:41 Order name: SARS RAPID; Complete Time: 09:15 [facility] 05/14 07:41 Order name: US Abdomen Limited; Complete Time: 09:15 [facility] 05/14 09:20 Order name: Cholangiogram [facility] 05/14 10:27 Order name: CT Abd/Pelvis - IV Contrast Only [facility] 05/14 11:34 Order name: CT [facility] 05/14 06:58 Order name: EKG; Complete Time: 06:59 [facility] 05/14 06:58 Order name: Cardiac monitoring; Complete Time: 07:02 [facility] 05/14 06:58 Order name: EKG - Nurse/Tech; Complete Time: 07:16 [facility] 05/14 06:58 Order name: IV Saline Lock; Complete Time: 07:16 [facility] 05/14 06:58 Order name: Labs collected and sent; Complete Time: 07:16 [facility] 05/14 06:58 Order name: O2 Per Protocol; Complete Time: 07:16 [facility] 05/14 06:58 Order name: O2 Sat Monitoring; Complete Time: 07:16 vc EC:19 Rate is 56 beats/min. Rhythm is regular. QRS [place] is Normal. ND interval is normal. QRS blaine interval is normal. QT interval is normal. No Q waves. T waves are Normal. No ST changes noted. Clinical impression: Sinus bradycardia and No evidence of ischemia. Interpreted by me. Reviewed by me. Administered Medications: 08:10 Drug: Zofran (Ondansetron) 4 mg Route: IVP; Site: right antecubital; tp1 09:23 Follow up: Response: No adverse reaction tp1 08:13 Drug: morphine 4 mg Route: IVP; Infused Over: 4 mins; Site: right antecubital; tp1 08:40 Follow up: Response: Pain is decreased tp1 08:16 Drug: Pepcid (famotidine) 20 mg Route: IVP; Site: right antecubital; tp1 08:40 Follow up: Response: Pain is decreased tp1 08:19 Drug: NS 0.9% 1000 ml Route: IV; Rate: 125 ml/hr; Site: right antecubital; tp1 12:27 Follow up: IV Status: Infusion continued upon admission tp1 09:03 Drug: Zosyn (piperacillin-tazobactam) 3.375 grams Route: IVPB; Infused Over: 60 mins; tp1 Site: right antecubital; 10:38 Follow up: Response: No adverse reaction; IV Status: Completed infusion; IV Intake: tp1 100ml Disposition Summary: 05/14/22 09:27 Hospitalization Ordered Hospitalization Status: Observation blaine Location: Telemetry/MedSurg (observation) blaine Condition: Stable blaine Problem: new blaine Symptoms: have improved blaine Bed/Room Type: Standard blaine Provider: Serena Prakash(05/14/22 10:28) blaine Room Assignment: [facility](05/14/22 10:35) Diagnosis - Calculus of gallbladder and bile duct with acute and chronic cholecystitis without blaine obstruction - Abdominal pain, Generalized blaine Forms: - Medication Reconciliation Form blaine - SBAR form blaine Signatures: Dispatcher [employer] Hortensia Jackson RN RN dw Anderson, Corey, MD MD cha Parker, Tiffany, RN RN tp1 Kristin Hawk RN RN vc1 Corrections: (The following items were deleted from the chart) 10: 09:27 Kai Truong cha blaine 10:35 09:27 blaine rice
--- NOTE | 2022-05-14 11:33 | RAD REPORT ---
EXAM DESCRIPTION: CTAbdomen Pelvis W Contrast - 05/14/2022 10:49 am CLINICAL HISTORY: Abdominal pain. Abdominal pain, acute, nonlocalized COMPARISON: Abdomen Pelvis W Contrast dated 12/04/2019 TECHNIQUE: Biphasic CT imaging of the abdomen and pelvis was performed with 100 ml non-ionic IV cont rast. All CT scans are performed using dose optimization technique as appropriate and may include automated exposure control or mA/KV adjustment according to patient size. FINDINGS: The lung bases are clear. The liver demonstrates fatty infiltration. Cholelithiasis. Spleen, pancreas, adrenal glands and kidne ys are within normal limits. No bowel obstruction, free air, free fluid or abscess. A few mildly prominent small bowel loops in th e left abdomen are present. The appendix is normal. No evidence of significant lymphadenopathy. No suspicious bony findings. IMPRESSION: Diffuse fatty liver. A few mildly prominent fluid-filled small bowel loops on the left may represent a mild ileus. Cholelithiasis.
--- NOTE | 2022-05-14 13:01 | RAD REPORT ---
EXAM DESCRIPTION: MRI - Cholangiogram - 05/14/2022 11:48 am CLINICAL HISTORY: chest pain/ epigastric pain COMPARISON: Abdomen Pelvis W Contrast dated 05/14/2022 FINDINGS: Three-dimensional MRCP was performed using maximum intensity projection reconstruction on the same work station. No intrahepatic biliary tree dilatation is seen. The common bile duct is normal caliber without evide nce of retained stone, stricture or mass. The pancreatic duct is not pathologically dilated. Cholelithiasis is noted. Limited T2 sequences through the abdomen demonstrates no bulky adenopathy, significant free fluid or abscess. IMPRESSION: Cholelithiasis. Otherwise, negative MRCP.
[2022-05-14 13:02] VITALS: O2SAT 100
[2022-05-14 15:04] VITALS: BMI 37.4
[2022-05-14] MEDS ORDERED: ONDANSETRON 4 MG/2 ML VIAL IV PRN (17:13)
[2022-05-14] MEDS ORDERED: MORPHINE 4 MG/ML SYR IV PRN (17:13)
[2022-05-14] MEDS ORDERED: HYDROCODONE/APAP 7.5/325 MG TAB PO PRN (17:13)
[2022-05-14] MEDS: PIPER TAZO 3.375 GM in NA CHLORIDE 0.9% 100 ML IV SCH (17:35)
[2022-05-14] MEDS: D5 0.45 NS 1,000 ML IV SCH (17:35)
[2022-05-14] MEDS: FAMOTIDINE 20 MG/2 ML VIAL IV SCH (21:30)
[2022-05-15] MEDS: D5 0.45 NS 1,000 ML IV SCH (00:53)
[2022-05-15] MEDS: PIPER TAZO 3.375 GM in NA CHLORIDE 0.9% 100 ML IV SCH ×2 (00:54→09:12)
[2022-05-15] MEDS: ACETAMINOPHEN 325 MG TABLET PO PRN ×2 (04:37→10:50)
[2022-05-15 04:39] LABS: Absolute Lymphocytes (CBC) 1.4 K/uL (0.7-4.9); Lymphocytes % 26.1 % (15.3-44.8); MCV 84.7 fL (80-100); MPV 8.8 fL (7.6-11.3); RBC Red Blood Cell Count 4.14 M/uL (3.86-4.86)
[2022-05-15 05:00] LABS: Albumin 2.8 g/dL (3.4-5.0); Bilirubin Direct 0.2 mg/dL (0-0.2); Bilirubin Total 0.7 mg/dL (0.2-1.0); Potassium 3.7 mmol/L (3.5-5.1); Protein, Total 6.5 g/dL (6.4-8.2)
[2022-05-15] MEDS: FAMOTIDINE 20 MG/2 ML VIAL IV SCH (09:12)
--- NOTE | 2022-05-15 12:14 | P.PN ---
Subjective Date of Service: 05/15/22 Subjective: No new changes (Patient remains pain free, no issues overnight, tolerated clears, no nause, no emesis, passing gas, ambulatory) Review of Systems 10-point ROS is otherwise unremarkable Physical Examination - Vital Signs Temperature: 97.9 F Blood Pressure: 114/50 Pulse: 56 Respirations: 16 Pulse Ox (%): 98 - Physical Exam General: Alert, In no apparent distress, Cooperative HEENT: Normocephalic Cardiovascular: Regular rate/rhythm Gastrointestinal: Soft and benign, Non-distended, W/out hepatosplenomegaly, W/out hepatomegaly, No ascites, No tenderness, No masses, No rebound, No guarding Assessment And Plan - Plan 46 year old woman who remains pain free - ok to discharge from surgical standpoint - follow up with me as outpatient - follow up with primary care doctor - continue management per Hospitalist
[2022-05-15 13:18] LABS: Albumin 3.1 g/dL (3.4-5.0); Bilirubin Direct 0.1 mg/dL (0-0.2); Bilirubin Total 0.6 mg/dL (0.2-1.0)
--- NOTE | 2022-05-15 13:26 | CON ---
Date of Consultation: 05/14/2022 Brief History Of Present Illness: The patient is a 46-year-old female, who presents to the hospital with complaints of substernal and left upper chest pain with radiation down to the left lowe r quadrant, beginning approximately 2 days prior. It was associated with diarrhea and loose bowel mo vements. She states that someone else in her family has similar complaints, the child who has been c omplaining of gastroenteritis type symptoms with nausea, vomiting, and diarrhea. She additionally co mplains of nausea, but no vomiting. No other exacerbating, alleviating factors. There are no sympto ms modifying with the exception of any food will make the symptoms occasionally slightly worse transi ently, but not a significant change by her description. She does not note any other food association s. No recent travel. Past Medical History: Denies. Past Surgical History: She had knee surgery. Allergies: NO KNOWN DRUG ALLERGIES. Medications: None. Physical Examination: Vital Signs: At the time of my examination; her BMI is 37.4. Her blood pressure was 113/57, heart r ate 57, respiratory rate 17, temperature 98.2, O2 sats 99% on room air. General: She is awake, alert, oriented. Psychiatric: Appropriate, conversive. HEENT: Normocephalic. Sclerae anicteric. Mucous membranes moist. Oropharynx clear. Neck: Supple without JVD. Chest: Normal expansion and excursion. Cardiovascular: Regular rate and rhythm. Pulmonary: Clear to auscultation bilaterally. Abdomen: Soft, nontender, nondistended. No rebound. No guarding. No focal peritonitis. Negative Adam sign. Completely benign abdominal exam. The patient is smiling throughout my deep palpation exam and has no evidence of pain or tenderness by her description and by my examination. Extremities: No clubbing, cyanosis, edema. Skin: Warm and dry. Laboratory Data: Revealed a white blood cell count of 6.9, hemoglobin is 12.4, hematocrit 37.5, plat elet count is 277. Neutrophils are normal at 64%. Sodium 137, potassium 3.6, chloride 105, carbon d ioxide 25, BUN 13, creatinine 0.67, glucose is 110. Her AST was not checked. Her troponin was 4.8, lipase is 83. COVID was negative. She had imaging performed, which included a chest x-ray performed , officially read as no acute cardiopulmonary process appreciated. She additionally had an abdominal ultrasound performed, which was officially read as cholelithiasis, the gallbladder demonstrates shad owing gallstones, no pericholecystic fluid or gallbladder wall thickening. The common bile duct is u pper limit of normal measuring 4 to 5 mm. No liver, intrahepatic biliary ductal dilatation. She add itionally had an MRCP, officially read as cholelithiasis, otherwise negative MRCP. No intrahepatic b iliary ductal dilatation seen. Common bile duct is normal caliber without evidence of retained stone , stricture or mass. The pancreatic duct is not pathologically dilated. Cholelithiasis noted. She additionally had a CT abdomen and pelvis, which was officially read as the liver demonstrates fatty i nfiltration, cholelithiasis. Spleen, pancreas, and adrenal glands and kidneys within normal limits. No bowel obstruction, free air, free fluid or abscess. A few mildly prominent small bowel loops in the left abdomen present. The appendix is normal. No evidence of significant lymphadenopathy. Diff use fatty liver is with official impression with a few mildly prominent fluid, small bowel loops in t he left, may represent a mild ileus and cholelithiasis. Assessment And Plan: This is a 46-year-old female, who presents with no abdominal pain. After an in itial episode of chest pain, I do not find that the patient has a surgical indication with respect to her gallbladder or any other intraabdominal pathology at this time. As such, I recommend continue m edical management per primary medical team. From a surgical standpoint, the patient is okay to go ho me from a surgical standpoint and can follow up with me as an outpatient if her symptoms return; concepción chaves, she is currently asymptomatic 100%, has no chest pain, no abdominal pain and as such, if she has been medically cleared from a cardiovascular standpoint, I recommend follow up with her primary [facility] doctor as well as myself as an outpatient setting if the symptoms return and if she requires any additional information; however, I have highly recommend she follows up with a primary medical doctor for the symptoms she has experienced and for ongoing care. I have explained the risks, benefits, an d alternatives of the above stated plan. The patient agrees to proceed as indicated. Thank you for this interesting consult. LACHO/NOAH Voice ID: [id number] Report ID: [id number]
[2022-05-15 15:57] VITALS: BP 106/54; TEMP 98.2
--- NOTE | 2022-05-15 21:15 | P.HP ---
Certification for Inpatient Patient admitted to: Observation With expected LOS: <2 Midnights Patient will require the following post-hospital care: None Practitioner: I am a practitioner with admitting privileges, knowledge of patient current condition, hospital course, and medical plan of care. Services: Services provided to patient in accordance with Admission requirements found in Title 42 Section 412.3 of the Code of Federal Regulations Patient History Date of Service: 05/14/22 Reason for admission: Abdominal pain History of Present Illness: patient is a 46-year-old female who came to the hospital with abdominal discomfort. Pain was mainly in the right upper and lower quadrant. Patient came into the emergency room for further evaluation. CT imaging was completely unremarkable except for cholelithiasis. Seen by General surgery and they recommend outpatient follow-up. At this time patient will be admitted for observation. Allergies No Known Allergies Allergy (Verified 11/19/14 05:49) Home Medications: Amox/Clavulanate [Augmentin 875-125 Tab] 875 mg PO BID #10 tab 05/15/22 Hydrocodone 7.5/APAP 325 [[place] 7.5/325 mg*] 1 tab PO Q6H PRN #30 tab 05/15/22 - Past Medical/Surgical History Diabetic: No Past Medical History: Patient denies medical history Past Surgical History: Patient denies surgical history - Family History Father Family History: Reviewed- Non-Contributory - Social History Smoking Status: Never smoker Alcohol use: No CD- Drugs: No Caffeine use: Yes Place of Residence: Home Review of Systems 10-point ROS is otherwise unremarkable Physical Examination - Vital Signs Temperature: 98.2 F Blood Pressure: 106/54 Pulse: 62 Respirations: 16 Pulse Ox (%): 97 - Physical Exam General: Alert, In no apparent distress, Oriented x3 HEENT: Atraumatic, PERRLA, Mucous membr. moist/pink, EOMI, Sclerae nonicteric Neck: Supple, 2+ carotid pulse no bruit, No LAD, Without JVD or thyroid abnormality Respiratory: Clear to auscultation bilaterally, Normal air movement Cardiovascular: Regular rate/rhythm, Normal S1 S2 Gastrointestinal: Normal bowel sounds, Soft and benign, Non-distended, No tenderness Musculoskeletal: No clubbing, No swelling, No tenderness Integumentary: No rashes Neurological: Normal gait, Normal speech, Normal strength at 5/5 x4 extr, Normal tone, Sensation intact, Cranial nerves 3-12 intact, Normal affect Lymphatics: No axilla or inguinal lymphadenopathy Assessment & Plan - Problems (Diagnosis) (1) Abdominal pain Status: Acute (2) Cholelithiasis Status: Acute - Plan Plan: 1. Pain control 2. IV fluids 3. antibiotic therapy 4. Outpatient general surgery follow-up Discharge Plan: Home Plan to discharge in: 24 Hours - Advance Directives Does patient have a Living Will: No Does patient have a Durable POA for Healthcare: No - Code Status/Comfort Care Code Status Assessed: Yes Code Status: Full Code Critical Care: No Time Spent Managing PTS Care (In Minutes): 45
--- NOTE | 2022-05-15 21:16 | P.DS ---
Discharge Date: 05/15/22 Disposition: ROUTINE DISCHARGE Discharge Condition: GOOD Reason for Admission: Abdominal pain - Problems (1) Abdominal pain Status: Acute (2) Cholelithiasis Status: Acute Brief History of Present Illness: patient is a 46-year-old female who came to the hospital with abdominal discomfort. Pain was mainly in the right upper and lower quadrant. Patient came into the emergency room for further evaluation. CT imaging was completely unremarkable except for cholelithiasis. Seen by General surgery and they recommend outpatient follow-up. At this time patient will be admitted for observation. Hospital Course: patient continues to do well. At this time, patient is stable for discharge with outpatient follow-up. Patient has been seen by General surgery and they recommend outpatient follow-up. Possible elective laparoscopic cholecystectomy as an outpatient. Vital Signs/Physical Exam: Temp Pulse Resp BP Pulse Ox 98.2 F 62 16 106/54 L 97 05/15/22 21:15 05/15/22 21:15 05/15/22 21:15 05/15/22 21:15 05/15/22 21:15 General: Alert, In no apparent distress, Oriented x3 Laboratory Data at Discharge: WBC 5.40 K/uL (4.3-10.9) 05/15/22 03:32 Hgb 11.7 g/dL (12.0-15.0) L 05/15/22 03:32 Hct 35.0 % (36.0-45.0) L 05/15/22 03:32 Plt Count 245 K/uL (152-406) 05/15/22 03:32 Sodium 140 mmol/L (136-145) 05/15/22 03:32 Potassium 3.7 mmol/L (3.5-5.1) 05/15/22 03:32 BUN 7 mg/dL (7-18) 05/15/22 03:32 Creatinine 0.80 mg/dL (0.55-1.3) 05/15/22 03:32 Glucose 96 mg/dL (74-106) 05/15/22 03:32 Total Bilirubin 0.6 mg/dL (0.2-1.0) 05/15/22 12:45 AST 48 U/L (15-37) H 05/15/22 12:45 ALT 88 U/L (12-78) H 05/15/22 12:45 Alkaline Phosphatase 79 U/L (45-117) 05/15/22 12:45 Lipase 73 U/L (73-393) 05/15/22 03:32 Home Medications: Amox/Clavulanate [Augmentin 875-125 Tab] 875 mg PO BID #10 tab 05/15/22 Hydrocodone 7.5/APAP 325 [[place] 7.5/325 mg*] 1 tab PO Q6H PRN #30 tab 05/15/22 New Medications: Amox/Clavulanate [Augmentin 875-125 Tab] 875 mg PO BID #10 tab Hydrocodone 7.5/APAP 325 [[place] 7.5/325 mg*] 1 tab PO Q6H PRN #30 tab PRN Reason: Pain Scale 5-7 (Moderate) Physician Discharge Instructions: -DC IV and DC home -Follow-up with PCP in 1 to 2 weeks -Follow-up with Surgery, Dr. Truong, in 1 to 2 weeks -Please call Dr. Prakash at [phone] if any questions regarding hospital stay -Please call nursing station at [phone] if any nursing or medication questions -Return to the emergency room if symptoms worsen Diet: Regular Activity: Fall precautions Followup: Kai Truong MD [ACTIVE - CAN ADMIT] - NONE,NONE [Primary Care Provider] - Time spent managing pt's care (in minutes): 35
--- NOTE | 2022-05-17 18:45 | EKG ---
Test Date: 2022-05-14 Test Time: 07:06:53 Representative: ANDRE MEASUREMENT RESULTS: Intervals: Rate: 56 ND: 144 QRSD: 84 QT: 434 QTc: 418 [place]: P: 61 ND: 144 QRS: 84 T: 69 INTERPRETIVE STATEMENTS: Sinus bradycardia Otherwise normal ECG Compared to ECG 12/04/2019 11:38:31 Sinus rhythm no longer present Electronically Signed On 05-17-22 18:39:53 CDT by Ferny Oro
== END 2022-05-15 16:30 | disposition home or self-care (01) ==
LOC: ER 06:43 → ERHOLD 09:31 → 4TH 11:17
PROVIDERS: ADMIT Surgery; ATTEND Hospitalist
DX: R10.11 Right upper quadrant pain (principal); K80.20 Calculus of gallbladder without cholecystitis without obstruction; R19.7 Diarrhea, unspecified; Z20.822 Contact with and (suspected) exposure to COVID-19
CPT/HCPCS: 36415; 71045; 74177; 74181; 76705; 80048; 80076; 83690; 84484; 85025; 87811; 93005; 96361; 96365; 96366; 96375; 99285; G0378; J2405; J2543; J7030; J7799; Q9967

== ENCOUNTER 2025-03-01 23:05 | Emergency (ER) | payer SELFPAY ==
--- OUTSIDE RECORDS SUMMARY | 2025-03-01 23:08 | XMS REPORT | Continuity of Care Document ---
Author Name Unknown Address [address] [place] [address] [place] [address] [facility] Address [address] [place] [address]. [address] [place] [id number] Care Team Providers Care Tire Molder Name Role Phone Unavailable Unavailable Unavailable Encounters Start Date/Time End Date/Time Encounter Type Admission Type Attending Clinicians Care Facility Care Department Encounter ID Source 2023-10-05 15:49:39 2023-10-05 15:49:39 Outpatient [facility] [id number] Rod[address] Sharpe
[2025-03-01] MEDS ORDERED: ONDANSETRON 4 MG/2 ML VIAL ONE (23:34)
[2025-03-01] MEDS ORDERED: KETOROLAC 30 MG/ML INJ ONE (23:34)
[2025-03-01] MEDS ORDERED: FAMOTIDINE 20 MG/2 ML VIAL IV ONE (23:34)
[2025-03-01] MEDS ORDERED: NA CHLORIDE 0.9% 1,000 ML ONE (23:35)
[2025-03-01 23:59] LABS: Absolute Lymphocytes (CBC) 2.1 K/uL (0.7-4.9); Hematocrit 39.6 % (36.0-45.0); Hemoglobin 13.8 g/dL (12.0-15.0); MCH 31.1 pg (27.0-35.0); MCHC 34.9 g/dL (32.0-36.0); MCV 89.3 fL (80-100); MPV 8.4 fL (7.6-11.3); Nucleated RBC Absolute Count 0.0 (0-0); Nucleated Red Blood Cells % 0.1 % (0-0); RBC Red Blood Cell Count 4.43 M/uL (3.86-4.86); White Blood Count 7.30 thou/uL (4.3-10.9)
[2025-03-02 00:08] LABS: Urine Micro Reflex YN NO BILL MICROSCOPIC
[2025-03-02 00:16] LABS: ALT/SGPT 34 U/L (13-56); Albumin 3.6 g/dL (3.4-5.0); Albumin/Globulin Ratio 0.9 (1.1-1.8); Alkaline Phosphatase 81 U/L (45-117); Anion Gap 9.5 mEq/L (5.0-15.0); BUN Blood Urea Nitrogen 11 mg/dL (7-18); Globulin 3.8 g/dL (2.3-3.5); Glucose Level 92 mg/dL (74-106); Lipase 26 U/L (13-75); Potassium 3.5 mEq/L (3.5-5.1)
[2025-03-02 00:22] LABS: AST/SGOT < 10 U/L (15-37)
--- NOTE | 2025-03-02 01:26 | RAD REPORT ---
Clinical Indication: Bed Name: 14; ABD PAIN Comparison: None TECHNIQUE: Grayscale and limited color sonographic evaluation of the right upper quadrant of the abdomen and gal lbladder region was performed with standard technique. FINDINGS: LIVER: The visualized portions of the liver are unremarkable. BILE DUCTS: The intrahepatic and extrahepatic bile ducts are not dilated with the common bile duct measuring 2. 8 mm. The distal common bile duct is not well seen. GALLBLADDER: The gallbladder is contracted. Shadowing echogenic focus is noted within the gallbladder lumen, consi stent with stone. No pericholecystic fluid is noted. The gallbladder wall measures 1.7 mm in thickness. No sonographic Adam sign was reported during this exam.. ASCITES: There is no right upper quadrant abdominal ascites. IMPRESSION: 1. Cholelithiasis without sonographic evidence of acute cholecystitis. Electronically signed by: Adam Worley MD 03/02/2025 01:01 AM CDT RP Due to temporary technical issues with the PACS/Algolux reporting system, reports are being misael d by the in-house radiologist without review as a courtesy to ensure prompt reporting the interpreting radiologist is fully responsible for the content of the report. Transcribed Date/Time: 03/02/2025 1:26 AM
--- NOTE | 2025-03-02 03:17 | RAD REPORT ---
EXAM DESCRIPTION: Abdomen Pelvis W Contrast RadLex: CT ABDOMEN PELVIS WITH IV CONTRAST CLINICAL HISTORY: 49 years Female; ABD PAIN; IV ONLY Bed Name: 14 TECHNIQUE: CT of the abdomen and pelvis [with] intravenous contrast. All CT scans at this facility use dose modulation, iterative reconstruction, and/or weight based dosi ng when appropriate to reduce radiation dose to as low as reasonably achievable. COMPARISON: CT abdomen pelvis 05/14/2022. FINDINGS: Lower thorax: Lung bases are clear Abdomen: Stomach: Within normal limits Liver: No focal lesions. Hepatic steatosis. No intrahepatic ductal distention. Gallbladder: Cholelithiasis. Pancreas: Within normal limits Spleen: Within normal limits Right kidney: No hydronephrosis. No focal lesion. Left kidney: No hydronephrosis. No focal lesion. Adrenal glands: Within normal limits Vascular structures: Within normal limits Nodes: No lymphadenopathy by size criteria Pelvis: Small bowel: No significant distention. Appendix: Within normal limits Colon: No distention or acute pericolonic edema. Moderate stool burden. Peritoneum: No free intraperitoneal fluid or air. Bones: No acute bone findings. Bladder: Unremarkable. Reproductive organs: No acute findings. Soft tissues: Small fatty umbilical hernia. IMPRESSION: 1. No acute abdominopelvic findings. 2. Hepatic steatosis. 3. Cholelithiasis. 4. Moderate stool burden. Electronically signed by: Umer Feliciano MD 03/02/2025 03:12 AM CDT TYG Due to temporary technical issues with the PACS/Luv[employer] reporting system, reports are being misael d by the in-house radiologist without review as a courtesy to ensure prompt reporting the interpreting radiologist is fully responsible for the content of the report. Transcribed Date/Time: 03/02/2025 3:16 AM
--- NOTE | 2025-03-02 03:58 | ER ---
Nurse's Notes [facility] Name: Ruby Salvador Age: 49 yrs Sex: Female : 1975 Arrival Date: 03/01/2025 Time: 23:05 Bed 14 Private MD: Diagnosis: Cholelithiasis without acute cholecystitis. Acute upper abdominal pain Presentation: 03/01 23:20 Chief complaint: Patient states: I had galls stones two years ago and i have been fine kd3 ever since. I changed my diet and was ok. But Tuesday i started having upper abdominal pain across my diaphragm and into my right shoulder blade and it has just gotten worse. Coronavirus screen: Vaccine status: Patient reports being unvaccinated. Ebola Screen: No symptoms or risks identified at this time. Initial Sepsis Screen: Does the patient meet any 2 criteria? No. Patient's initial sepsis screen is negative. Does the patient have a suspected source of infection? No. Patient's initial sepsis screen is negative. Risk Assessment: Do you want to hurt yourself or someone else? Patient reports no desire to harm self or others. Onset of symptoms was February 27, 2025. 23:20 Method Of Arrival: Ambulatory kd3 23:20 Acuity: TIFFANI 3 kd3 Triage Assessment: 23:22 General: Appears uncomfortable, Behavior is calm, cooperative. Pain: Complains of pain kd3 in diaphragm and posterior aspect of right shoulder. GI: Abdomen is non-distended. Historical: - Allergies: 23:22 No Known Allergies; kd3 - Immunization history:: Adult Immunizations up to date. - Infectious Disease History:: Denies. - Social history:: Smoking status: Patient denies any tobacco usage or history of. - Family history:: not pertinent. Screenin:46 [facility] ED Fall Risk Assessment (Adult) History of falling in the last 3 months, rg5 including since admission No falls in past 3 months (0 pts) Confusion or Disorientation No (0 pts) Intoxicated or Sedated No (0 pts) Impaired Gait No (0 pts) Mobility Assist Device Used No (0 pt) Altered Elimination No (0 pt) Score/Fall Risk Level 0 - 2 = Low Risk Oriented to surroundings, Maintained a safe environment, Provided non-skid footwear. Abuse screen: Denies threats or abuse. Nutritional screening: No deficits noted. Tuberculosis screening: No symptoms or risk factors identified. Assessment: 23:46 General: Appears in no apparent distress. uncomfortable, Behavior is calm, cooperative, rg5 appropriate for age. Pain: Complains of pain in abdomen Quality of pain is described as aching. Neuro: Level of Consciousness is awake, alert, obeys commands, Oriented to person, place, time, situation. Cardiovascular: Denies chest pain, Patient's skin is warm and dry. Respiratory: Airway is patent Trachea midline Breath sounds are clear. GI: Bowel sounds present in left lower quadrant Abd is soft and non tender Reports upper abdominal pain, nausea. : No signs and/or symptoms were reported regarding the genitourinary system. EENT: No signs and/or symptoms were reported regarding the EENT system. Derm: Skin is intact, Skin is dry, Skin is normal. Musculoskeletal: Circulation, motion, and sensation intact. Range of motion: intact in all extremities. 03/02 03:30 General: Pt wants to avoid taking narcotics if possible. Pt has been notified that kd3 there is a tramadol order if she changes her mind. . Neuro: Level of Consciousness is awake, alert, obeys commands, Oriented to person, place, time, situation. Cardiovascular: Patient's skin is warm and dry. Respiratory: Airway is patent Trachea midline Respiratory effort is even, unlabored. Vital Signs: 03/01 23:20 BP 129 / 66; Pulse 56; Resp 18; Temp 97.9(O); Pulse Ox 100% on R/A; Weight 88 kg; kd3 Height 5 ft. 1 in. ; 23:49 BP 117 / 83; Pulse 56; Resp 18; Pulse Ox 100% ; rg5 03/02 02:22 BP 105 / 55; Pulse 55; Resp 18; Pulse Ox 100% on R/A; kd3 03:31 BP 99 / 58; Pulse 60; Resp 18; Pulse Ox 98% on R/A; kd3 03/01 23:20 Body Mass Index 36.66 (88.00 kg, 154.94 cm) kd3 [place] Coma Score: 07:00 Eye Response: spontaneous(4). Motor Response: obeys commands(6). Verbal Response: sp4 oriented(5). Total: 15. ED Course: 03/01 23:08 Patient arrived in ED. al6 23:08 Murali Mendoza MD is Attending Physician. sp4 23:16 Fco Browne, BELKIS is Primary Nurse. rg5 23:22 Triage completed. kd3 23:22 Arm band placed on right wrist. kd3 23:37 Inserted saline lock: 20 gauge in right antecubital area, using aseptic technique. ts3 Blood collected. Flushed with 10 mL NS. 23:37 Initial lab(s) drawn, by mine laborer, sent to lab. ts3 23:37 Urine collected: clean catch specimen, sent to lab. ts3 23:46 Patient has correct armband on for positive identification. Bed in low position. Call rg5 light in reach. Side rails up X 1. Door closed. Noise minimized. Warm blanket given. 23:46 No provider procedures requiring assistance completed. rg5 23:47 US Abdomen Limited In Process Unspecified. EDMS 03/02 01:13 CT Abd/Pelvis - IV Contrast Only In Process Unspecified. EDMS 03:57 Kai Truong MD is Referral Physician. sp4 04:17 IV discontinued, intact, bleeding controlled, No redness/swelling at site. Pressure kd3 dressing applied. 04:18 Provided Education on: pain management . kd3 Administered Medications: 03/01 23:45 Drug: NS 0.9% IV 1000 ml IV at 1000 ml once; to be given as a bolus over 60 minutes rg5 Route: IV; Rate: 1000 ml; Site: right antecubital; 23:46 Drug: Famotidine IVP 20 mg IVP once; dilute with 10 mL 0.9% NaCl; give over 2 minutes rg5 Route: IVP; Site: right antecubital; 23:46 Drug: Ketorolac IVP 30 mg IVP once Route: IVP; Site: right antecubital; rg5 23:46 Drug: Ondansetron IVP 8 mg IVP once; over 2 minutes Route: IVP; Site: right antecubital;rg5 03/02 04:18 Not Given (Patient Refused): [id number] mg PO once kd3 Medication: 03/01 23:46 VIS not applicable for this client. rg5 Outcome: 03/02 03:57 Discharge ordered by . sp4 04:17 Discharged to home ambulatory, kd3 04:17 Condition: stable 04:17 Discharge instructions given to patient, family, Instructed on discharge instructions, follow up and referral plans. medication usage, Demonstrated understanding of instructions, follow-up care, medications, Prescriptions given X 3, 04:18 Patient left the ED. kd3 Signatures: Dispatcher [employer] Ling Juárez RN RN kd3 Murali Mendoza MD MD sp4 Fco Browne RN RN rg5 Melodie Morales6 Priyanka Peraza ts3 Corrections: (The following items were deleted from the chart) 03:32 03:31 BP 99 / 58; Pulse 96bpm; Resp 60bpm; Pulse Ox 98% RA; kd3 kd3
--- NOTE | 2025-03-02 03:58 | EDPHYS ---
Physician Documentation [facility] Name: Ruby Salvador Age: 49 yrs Sex: Female : 1975 Arrival Date: 03/01/2025 Time: 23:05 Bed 14 Private MD: ED Physician Murali Mendoza HPI: 03/01 23:08 This 49 yrs old Female presents to ER via Unassigned with complaints of sp4 Abdominal Pain, Shoulder Pain. 03/02 07:00 49-year-old female presents with abdominal pain with radiation to the right sp4 shoulder. Patient states she has history of gallstones.. Historical: - Allergies: 03/01 23:22 No Known Allergies; kd3 - Immunization history:: Adult Immunizations up to date. - Infectious Disease History:: Denies. - Social history:: Smoking status: Patient denies any tobacco usage or history of. - Family history:: not pertinent. ROS: 03/02 07:00 Constitutional: Negative for fever, chills, and weight loss, positive upper abdominal sp4 pain with radiation to the right shoulder. All other systems are negative, Exam: 07:00 Constitutional: This is a well developed, well nourished patient who is awake, alert, sp4 and in no acute distress. Head/Face: Normocephalic, atraumatic. Eyes: Pupils equal round and reactive to light, extra-ocular motions intact. Lids and lashes normal. Conjunctiva and sclera are not injected. Cornea within normal limits. Periorbital areas with no swelling, redness, or edema. ENT: Nares patent. No nasal discharge, no septal abnormalities noted. Tympanic membranes are normal and external auditory canals are clear. Oropharynx with no redness, swelling, or masses, exudates, or evidence of obstruction, uvula midline. Mucous membranes moist. Neck: Trachea midline, no thyromegaly or masses palpated, and no cervical lymphadenopathy. Supple, full range of motion without nuchal rigidity, or vertebral point tenderness. Chest/axilla: Normal chest wall appearance and motion. Nontender with no deformity. No lesions are appreciated. Cardiovascular: Regular rate and rhythm with a normal S1 and S2. No gallops, murmurs, or rubs. No pulse deficits. Respiratory: Lungs have equal breath sounds bilaterally, clear to auscultation and percussion. No rales, rhonchi or wheezes noted. No increased work of breathing, no retractions or nasal flaring. Abdomen/GI: Soft, with normal bowel sounds. No distension or tympany. No guarding or rebound. No evidence of tenderness throughout. Back: No spinal tenderness. No costovertebral tenderness. Skin: Warm, dry with normal turgor. Normal color with no rashes, no lesions, and no evidence of cellulitis. MS/ Extremity: Pulses equal, no cyanosis. Neurovascular intact. Full, normal range of motion. Neuro: Awake and alert, GCS 15, oriented to person, place, time, and situation. Cranial nerves II-XII grossly intact. Motor strength 5/5 in all extremities. Sensory grossly intact. Psych: Awake, alert, with orientation to person, place and time. Behavior, mood, and affect are within normal limits Vital Signs: 03/01 23:20 BP 129 / 66; Pulse 56; Resp 18; Temp 97.9(O); Pulse Ox 100% on R/A; Weight 88 kg; kd3 Height 5 ft. 1 in. ; 23:49 BP 117 / 83; Pulse 56; Resp 18; Pulse Ox 100% ; rg5 03/02 02:22 BP 105 / 55; Pulse 55; Resp 18; Pulse Ox 100% on R/A; kd3 03:31 BP 99 / 58; Pulse 60; Resp 18; Pulse Ox 98% on R/A; kd3 03/01 23:20 Body Mass Index 36.66 (88.00 kg, 154.94 cm) kd3 [place] Coma Score: 07:00 Eye Response: spontaneous(4). Motor Response: obeys commands(6). Verbal Response: sp4 oriented(5). Total: 15. MDM: 03/01 23:09 Medical Screening Exam initiated sp4 03/02 02:38 ED course: Clinical Indication: Bed Name: 14; ABD PAIN Comparison: None TECHNIQUE: sp4 Grayscale and limited color sonographic evaluation of the right upper quadrant of the abdomen and gallbladder region was performed with standard technique. FINDINGS: LIVER: The visualized portions of the liver are unremarkable. BILE DUCTS: The intrahepatic and extrahepatic bile ducts are not dilated with the common bile duct measuring 2.8 mm. The distal common bile duct is not well seen. GALLBLADDER: The gallbladder is contracted. Shadowing echogenic focus is noted within the gallbladder lumen, consistent with stone. No pericholecystic fluid is noted. The gallbladder wall measures 1.7 mm in thickness. No sonographic Adam sign was reported during this exam.. ASCITES: There is no right upper quadrant abdominal ascites. IMPRESSION: 1. Cholelithiasis without sonographic evidence of acute cholecystitis. . 07:00 Differential diagnosis: glenoid fracture, DJD, tendonitis. Data reviewed: vital signs, sp4 nurses notes, lab test result(s), radiologic studies, CT scan, ultrasound. Consideration of Admission/Observation Escalation of care including admission/observation considered. ED course: EXAM DESCRIPTION: Abdomen Pelvis W Contrast RadLex: CTABDOMEN PELVIS WITH IV CONTRAST CLINICAL HISTORY: 49 years Female; ABD PAIN; IV ONLYBed Name: 14 TECHNIQUE: CT of the abdomen and pelvis [with] intravenous contrast. All CT scans at this facility use dose modulation, iterative reconstruction, and/or weight based dosing when appropriate to reduce radiation dose to as low as reasonably achievable. COMPARISON: CT abdomen pelvis 05/14/2022. FINDINGS: Lower thorax: Lung bases are clear Abdomen: Stomach:Within normal limits Liver:No focal lesions. Hepatic steatosis. No intrahepatic ductal distention. Gallbladder:Cholelithiasis. Pancreas:Within normal limits Spleen:Within normal limits Right kidney:No hydronephrosis. No focal lesion. Left kidney:No hydronephrosis. No focal lesion. Adrenal glands:Within normal limits Vascular structures:Within normal limits Nodes:No lymphadenopathy by size criteria Pelvis: Small bowel:No significant distention. Appendix:Within normal limits Colon:No distention or acute pericolonic edema. Moderate stool burden. Peritoneum: No free intraperitoneal fluid or air. Bones: No acute bone findings. Bladder: Unremarkable. Reproductive organs: No acute findings. Soft tissues: Small fatty umbilical hernia. IMPRESSION: 1. No acute abdominopelvic findings. 2. Hepatic steatosis. 3. Cholelithiasis. 4. Moderate stool burden. . 03/01 23:09 Order name: CBC with Diff; Complete Time: 02:07 sp4 03/01 23:09 Order name: CMP; Complete Time: 02:07 sp4 03/01 23:09 Order name: Lipase; Complete Time: 02:07 sp4 03/01 23:20 Order name: UA W/ Microscopic; Complete Time: 02:07 sp4 03/01 23:20 Order name: Test, Serum; Complete Time: 02:07 sp4 03/01 23:20 Order name: CT Abd/Pelvis - IV Contrast Only; Complete Time: 03:39 sp4 03/01 23:23 Order name: US Abdomen Limited; Complete Time: 02:07 sp4 03/01 23:09 Order name: IV Saline Lock; Complete Time: 23:37 sp4 03/01 23:09 Order name: Labs collected and sent; Complete Time: 23:37 sp4 03/01 23:20 Order name: NPO; Complete Time: 23:46 sp4 Administered Medications: 03/01 23:45 Drug: NS 0.9% IV 1000 ml IV at 1000 ml once; to be given as a bolus over 60 minutes rg5 Route: IV; Rate: 1000 ml; Site: right antecubital; 23:46 Drug: Famotidine IVP 20 mg IVP once; dilute with 10 mL 0.9% NaCl; give over 2 minutes rg5 Route: IVP; Site: right antecubital; 23:46 Drug: Ketorolac IVP 30 mg IVP once Route: IVP; Site: right antecubital; rg5 23:46 Drug: Ondansetron IVP 8 mg IVP once; over 2 minutes Route: IVP; Site: right antecubital;rg5 03/02 04:18 Not Given (Patient Refused): [id number] mg PO once kd3 Disposition: 07:02 Chart complete. sp4 Disposition Summary: 03/02/25 03:57 Discharge Ordered Notes: Location: Home sp4 Problem: new sp4 Symptoms: have improved sp4 Condition: Stable sp4 Diagnosis - Cholelithiasis without acute cholecystitis. Acute upper abdominal pain sp4 Followup: sp4 - With: Kai Truong MD - When: 7 - 10 days - Reason: Recheck today's complaints Discharge Instructions: - Discharge Summary Sheet sp4 - Cholelithiasis, [id number] sp4 - Fat and Cholesterol Restricted Eating Plan, [id number] sp4 Forms: - Patient Portal Instructions sp4 Prescriptions: - meloxicam 15 mg Oral tablet - take 1 tablet ORAL route daily PRN pain; 30 tablet; Refills: 0, Product sp4 Selection Permitted - Tramadol 50 mg Oral tablet - take 1 tablet ORAL route every 8 hours as needed; 20 tablet; Refills: 0, sp4 Product Selection Permitted - ondansetron 8 mg Oral Tablet,disintegrating - take 1 tablet ORAL route every 8 hours PRN nausea; 30 tablet; Refills: 0, sp4 Product Selection Permitted Signatures: Dispatcher [employer] EDMS Ling Rincon, RN RN kd3 Murali Mendoza MD MD sp4 Fco Browne RN RN rg5 Corrections: (The following items were deleted from the chart) 03/01 23:09 23:09 CBC+H.LAB.BRZ ordered. EDMS EDMS 23: 23:09 COMPREHENSIVE METABOLIC PANEL+C.LAB.BRZ ordered. EDMS EDMS : 23:09 LIPASE+C.LAB.BRZ ordered. EDMS EDMS 23:20 23:20 Abdomen Pelvis W Con+CT.RAD.BRZ ordered. EDMS EDMS
[2025-03-02 04:26] VITALS: TEMP 97.9
[2025-03-02 04:31] VITALS: BP 99/58; O2SAT 98
== END 2025-03-02 04:18 | disposition home or self-care (01) ==
LOC: ER 23:05
DX: K80.20 Calculus of gallbladder without cholecystitis without obstruction (principal)
CPT/HCPCS: 36415; 74177; 76705; 80053; 81001; 83690; 84703; 85025; 96374; 96375; 99284; J2405; J7030; Q9967